=== PATIENT | male | born 1975 | race Two or more races ===

== ENCOUNTER → 2020-01-07 | Outpatient (CLI) | payer BC ==
[~2020-01-07] MED LIST: CIPRO500 MG PO; FLAGYL500 MG PO; NORCO 5-325 TA1 EACH PO
--- NOTE | 2020-01-07 16:37 | Diagnostic Imaging Report ---
Indication: Cough Technique: 2 views of the chest Comparison: None Findings: Lungs and pleural spaces are clear. The heart size is normal. The bones are unremarkable. No significant interim change. Impression: Negative
== END | disposition home or self-care (01) ==
LOC: RAD 14:50
DX: Z01.818 Encounter for other preprocedural examination (principal); R05 Cough
CPT/HCPCS: 71046